=== PATIENT | female | born 1975 | race Caucasian/White ===

== ENCOUNTER 2016-05-16 13:38 | Outpatient (CLI) | payer MEDICAID ==
[~2016-05-16] VITALS: Ht 152.4 cm; Wt 75.0 kg
[2016-05-16 14:07] VITALS: Ht 152.4 cm; Wt 75.0 kg
[2016-05-16] MEDS ORDERED: BEN25 PO (14:09)
[2016-05-16] MEDS ORDERED: PRENAT PO (14:09)
--- NOTE | 2016-05-16 15:44 | RADRPT ---
PROCEDURE: US biophysical profile. CLINICAL INDICATION: DFM. well-being. TECHNIQUE: Multiple sonographic images of the uterus were obtained. The images were revi ewed on a PACS workstation. COMPARISON: 04/29/2016. FINDINGS: There is a single live intrauterine gestation. heart rate is 137 beats per minute. The position is cephalic. The placenta is posterior, grade 2. The CHRISTEN is 12 cm. Breathing Movement: 2 Gross Body Movement: 2 Tone: 2 Qualitative Amniotic Fluid Volume: 2 TOTAL: 8 IMPRESSION: 1. Single viable intrauterine gestation. 2. Biophysical profile = 12/17. 3. CHRISTEN = 12 cm. RPTAT: HH .Gabriela Cai MD, MD Date Time Electronically viewed and signed by .Gabriela Cai MD, MD on 05/16/2016 15:43 .N/
== END 2016-05-16 16:15 | disposition home or self-care (01) ==
LOC: OBT 13:38 → L-D 13:41 → OBT 16:15
PROVIDERS: ATTEND Obstetrics & Gynecology
DX: O36.8130 Decreased fetal movements, third trimester, not applicable or unspecified (principal); O62.9 Abnormality of forces of labor, unspecified; O09.523 Supervision of elderly multigravida, third trimester; Z3A.38 38 weeks gestation of pregnancy
CPT/HCPCS: 76818; Z7500; G0463

== ENCOUNTER 2016-05-26 00:39 | Inpatient (IN) | payer MEDICAID ==
[~2016-05-26] VITALS: Ht 153.7 cm; Wt 76.5 kg
[~2016-05-26 00:39] MED LIST: BEN25 PO; PRENAT PO
[2016-05-26 01:10] VITALS: BP 178/85; PULSE 72; RESP 18; Ht 153.7 cm; Wt 76.5 kg
[2016-05-26] MEDS ORDERED: METHYLERGONOVINE 0.2 MG INJ IM PRN (01:30)
[2016-05-26] MEDS ORDERED: OXYTOCIN 30 UNITS/LR 500 ML IV PRN (01:30)
[2016-05-26] MEDS ORDERED: MISOPROSTOL 200 MCG TAB PR PRN (01:30)
[2016-05-26] MEDS ORDERED: ACETAMINOPHEN/CODEINE #3 TAB PO PRN (01:30)
[2016-05-26] MEDS ORDERED: BUTORPHANOL 2 MG INJ IV PRN (01:30)
[2016-05-26] MEDS ORDERED: CARBOPROST 250 MCG INJ IM PRN (01:30)
[2016-05-26] MEDS ORDERED: OXYTOCIN 30 UNITS/LR 500 ML IV SCH ×2 (01:30)
[2016-05-26] MEDS ORDERED: IBUPROFEN 600 MG TAB PO PRN (01:30)
[2016-05-26] MEDS ORDERED: LIDOCAINE 1% (MPF) 30 ML INJ INJ PRN (01:30)
--- NOTE | 2016-05-26 01:51 | HP ---
Date/Time of Note Date/Time of Note DATE: 05/26/16 TIME: 01:42 OB - History Hx of Present Free Text/Dictation 40yo at 38+4 presenting for LOF. Pt states she has been leaking fluid and having irregular UCs, approximately 20 min apart, since 0900. Pt reports normal FM, denies VB, headache, RUQ pain or visual changes. Care: Good Care Obstetrical Complications: None Medical Complications: None Past Family/Social History * Past Medical, Surgical, Family and Obstetric Histories reviewed from chart. Blood Type: O+ Rubella: immune RPR/VDRL: Negative GBS Status: Negative HBsAG: Negative OB Admission Exam Vital Signs Vital Signs Vital Signs Date Time Temp Pulse Resp B/P Pulse Ox O2 Delivery O2 Flow Rate FiO2 05/26/16 01:10 97.6 72 18 178/85 Room Air BPs 170-185/82-98 Physical Exam HEENT: WNL Heart: Rhythm Normal Lungs: Clear Abdomen: WNL Extremities: Normal Reflexes: Normal Cervical Dilatation: None Effacement: 0% Station: Ballotable Membranes: Ruptured Amniotic Fluid: Clear Heart Rate: 120's Accelerations: Accelerations Present Decelerations: No Decelerations Varibility: Moderate Contractions on Admission: >10 Minutes Apart Intensity: Mild OB Assessment/Plan Other Assessment: 1) Term PROM 2) Severe Range BPs Plan: Induction Induction Method: per Pitocin Protocol Other plan: 1) Term PROM: Admit for IOL in the setting of PROM without labor. Will start Pitocin and titrate per protocol for contractions. Continuous toco. 2) Elevated BPs: Pt without known hx of elevated BPs although DBP at last appointment was 92. Pt is asymptomatic from PreE standpoint. PreE labs ordered along with straight cath urine specimen to assess for proteinuria. BPP/CHRISTEN pending. Stat Labetolol 20mg IV x1 now, will reassess BPs in 10 min. Plan to start Mag Sulfate after BPs are controlled initially with IV antihypertensives. 3) ID: Afebrile. s/p ROM x16H. ROM Plus positive. GBS neg. Antibiotics not indicated. 4) FWB: Category 1 FHT. CEFM 5) Pain: Pt comfortable now. Will reassess pt desires for pain control as labor progresses. Plan as outlined above discussed with pt. Questions answered to patient's satisfaction. YVON GLASER MD May 26, 2016 01:50
[2016-05-26] MEDS: LACTATED RINGER'S 1,000 ML IV SCH ×3 (01:53→20:49)
[2016-05-26] MEDS ORDERED: LABETALOL HCL 20MG INJ IV ONE (02:00)
[2016-05-26 02:29] LABS: BASOPHILS % 0.7 % (0.0-2.0); EOSINOPHILS # 0.1 10^3/ul (0.0-0.5); EOSINOPHILS % 1.2 % (0.0-7.0); HEMATOCRIT 34.2 % (37.0-47.0); HEMOGLOBIN 11.3 g/dl (12.0-16.0); LYMPHOCYTES # 1.7 10^3/ul (0.8-2.9); MEAN CORPUSCULAR HEMOGLOBIN 24.3 pg (29.0-33.0); MEAN CORPUSCULAR VOLUME 73.7 fl (82.0-101.0); MEAN PLATELET VOLUME 9.7 fl (7.4-10.4); MONOCYTE # 0.5 10^3/ul (0.3-0.9); MONOCYTES % 6.3 % (0.0-11.0); NEUTROPHILS % 68.8 % (39.0-77.0); PLATELET COUNT 248 10^3/UL (140-440); RED BLOOD COUNT 4.63 10^6/ul (4.20-5.40); UNCORRECTED WBC 7.3 10^3/ul (4.8-10.8); WHITE BLOOD COUNT 7.3 10^3/ul (4.8-10.8)
[2016-05-26 02:32] LABS: CONDITION 1; LH ANALYZER COMMENTS 1
[2016-05-26 02:33] LABS: INR 0.86; PARTIAL THROMBOPLASTIN TIME 26.9 Sec (25.0-35.0); PROTIME 11.7 Sec (12.2-14.2); PT RATIO 0.9
[2016-05-26 02:52] LABS: ALBUMIN 3.3 g/dl (3.3-4.9); POTASSIUM 3.7 mmol/L (3.5-5.1)
[2016-05-26 02:54] LABS: BILIRUBIN,INDIRECT 0.1 mg/dl (0-1.1); BILIRUBIN,TOTAL 0.1 mg/dl (0.2-1.3); CREATININE 0.53 mg/dl (0.44-1.00)
[2016-05-26 02:55] LABS: ALBUMIN/GLOBULIN RATIO 0.94; TOTAL PROTEIN 6.8 g/dl (6.1-8.1); URIC ACID 5.7 mg/dl (3.1-7.9)
[2016-05-26 02:56] LABS: CALCIUM 8.8 mg/dl (8.4-10.2)
[2016-05-26] MEDS ORDERED: CA GLUCONATE (GM) 10% 10ML INJ IV PRN (03:30)
--- NOTE | 2016-05-26 03:52 | RADRPT ---
PROCEDURE: US OB biophysical profile. CLINICAL INDICATION: Contractions TECHNIQUE: Multiple sonographic images of the pelvis were obtained. The images were reviewed on a PACS workstation. COMPARISON: No pertinent prior examinations were submitted for comparison. FINDINGS: There is a single viable intrauterine gestation. Cardiac activity is present with 129 beats per min micaela. There is a vertex presentation. The placenta is posterior and grade 2 in appearance. There is a normal amount of amniotic fluid with an CHRISTEN = 5.5 cm. Biophysical profile: movement 2/2 tone 2/2. breathing 2/2 CHRISTEN 2/2 Total 12/17 IMPRESSION: Normal biophysical profile. Oligohydramnios. RPTAT: HIKT . .Lisandro Flower MD, MD Date Time Electronically viewed and signed by .Lisandro Flower MD, on 05/26/2016 03:51 .T/
[2016-05-26] MEDS ORDERED: MAGNESIUM SULFATE 4 GM/100 ML 100 ML IV SCH (04:00)
[2016-05-26] MEDS: MAGNESIUM SULFATE 20 GM/500 ML 500 ML IV SCH ×2 (05:13→15:24)
[2016-05-26 06:40] LABS: ADD UMIC NO; URINE BILIRUBIN (Dip) NEGATIVE (NEGATIVE); URINE BLOOD (Dip) NEGATIVE (NEGATIVE); URINE COLOR LT. YELLOW (YELLOW); URINE GLUCOSE (Dip) NEGATIVE (NEGATIVE); URINE KETONES (Dip) NEGATIVE (NEGATIVE); URINE LEUKOCYTE ESTERASE (Dip) NEGATIVE (NEGATIVE); URINE NITRITE (Dip) NEGATIVE (NEGATIVE); URINE TOTAL PROTEIN (Dip) NEGATIVE (NEGATIVE); URINE UROBILINOGEN (Dip) 0.2 E.U./dL (0.1-1.0)
[2016-05-26] MEDS: OXYTOCIN 30 UNITS/LR 500 ML IV SCH ×2 (07:45→16:00)
[2016-05-26] MEDS ORDERED: LACTATED RINGER'S 1,000 ML IV PRN (09:30)
[2016-05-26] MEDS ORDERED: ACETAMINOPHEN 325 MG TAB PO ONE (11:30)
[2016-05-26] MEDS ORDERED: METOCLOPRAMIDE 10 MG INJ IV ONE (19:47)
--- NOTE | 2016-05-26 19:57 | QN ---
Documentation Comment Laborist Pt seen and examined, FHT reviewed. Pt c/o BARNARD and facial flushing since starting magnesium sulfate. Took 650mg of Tylenol recently without improvement in BARNARD. Denies visual changes or RUQ pain. VS BPs 164/88 (150s-160s/80s-90s) FHT: Baseline 120s, mod dianna, +accels, early decel [place]: q2-6 min on Pitocin at 16mu/min SVE: 3/90/-2, forebag palpated Assessment 1)IOL 2/2 term PROM 2)Elevated BPs w/o evidence of PreE Plan 1)Continue IOL w/Pitocin, titrating for contractions per protocol. Cont toco 2)FWB reassuring, CEFM 3)Pt with mostly mild range BPs and unsustained severe range BPs, not requiring additional IV antihypertensives since early this AM in triage. Will repeat PreE labs now and send reyes cath urine specimen for U/A 4)Reglan 10mg IV x1 for BARNARD 5)Epidural per pt request for pain Anticipate VYON GLASER MD May 26, 2016 19:57
[2016-05-26] MEDS ORDERED: EPHEDrine SULFATE 50 MG/5 ML SYG IV PRN (20:30)
[2016-05-26] MEDS ORDERED: ONDANSETRON 4 MG INJ IV PRN (20:30)
[2016-05-26] MEDS ORDERED: NALOXONE (0.4 MG/ML) INJ IV PRN (20:30)
[2016-05-26] MEDS: FENTAnyl 2MCG/ML-ROPIV 0.2% 100 ML BAG EPI SCH (21:19)
[2016-05-26 21:26] LABS: ADD UMIC YES; URINE BILIRUBIN (Dip) NEGATIVE (NEGATIVE); URINE BLOOD (Dip) 1+ (NEGATIVE); URINE COLOR LT. YELLOW (YELLOW); URINE GLUCOSE (Dip) NEGATIVE (NEGATIVE); URINE KETONES (Dip) 40 (NEGATIVE); URINE LEUKOCYTE ESTERASE (Dip) NEGATIVE (NEGATIVE); URINE NITRITE (Dip) NEGATIVE (NEGATIVE); URINE TOTAL PROTEIN (Dip) NEGATIVE (NEGATIVE); URINE UROBILINOGEN (Dip) 0.2 E.U./dL (0.1-1.0)
[2016-05-26 21:29] LABS: BASOPHILS % 0.1 % (0.0-2.0); CONDITION 1; EOSINOPHILS % 0.5 % (0.0-7.0); HEMATOCRIT 36.1 % (37.0-47.0); HEMOGLOBIN 11.7 g/dl (12.0-16.0); LH ANALYZER COMMENTS 1; LYMPHOCYTES % 11.1 % (15.0-51.0); MEAN CORPUSCULAR HEMOGLOBIN 24.2 pg (29.0-33.0); MEAN CORPUSCULAR HGB CONC 32.5 g/dl (32.0-37.0); MEAN CORPUSCULAR VOLUME 74.5 fl (82.0-101.0); MEAN PLATELET VOLUME 9.6 fl (7.4-10.4); MONOCYTE # 0.4 10^3/ul (0.3-0.9); MONOCYTES % 4.1 % (0.0-11.0); NEUTROPHIL # 7.6 10^3/ul (1.6-7.5); NEUTROPHILS % 84.2 % (39.0-77.0); PLATELET COUNT 258 10^3/UL (140-440); RED BLOOD COUNT 4.84 10^6/ul (4.20-5.40); RED CELL DISTRIBUTION WIDTH 15.9 % (11.5-14.5)
[2016-05-26 21:31] LABS: INR 0.9; PARTIAL THROMBOPLASTIN TIME 26.8 Sec (25.0-35.0); PROTIME 12.1 Sec (12.2-14.2); PT RATIO 0.9
[2016-05-26 21:32] LABS: ALBUMIN 3.4 g/dl (3.3-4.9)
[2016-05-26 21:33] LABS: POTASSIUM 3.9 mmol/L (3.5-5.1)
[2016-05-26 21:35] LABS: ALBUMIN/GLOBULIN RATIO 0.94; BILIRUBIN,INDIRECT 0.2 mg/dl (0-1.1); BILIRUBIN,TOTAL 0.2 mg/dl (0.2-1.3); CREATININE 0.51 mg/dl (0.44-1.00)
[2016-05-26 21:36] LABS: CALCIUM 6.8 mg/dl (8.4-10.2); URIC ACID 6.1 mg/dl (3.1-7.9)
[2016-05-26 21:43] LABS: BACTERIA,URINE RARE; SQUAMOUS EPITHELIAL CELL,UR RARE
--- NOTE | 2016-05-26 23:32 | QN ---
Documentation Comment Pt sleeping. BARNARD resolved. Comfortable with epidural. BPs 110s-130s/70s FHT Category 1 now. Pt had a few late decels earlier which resolved with position changes SVE (@2100 immediately after epidural) unchanged PreE labs repeated. Urine neg for proteinuria, labs wnl. Continue Pitocin per protocol, now at 19mu/min. Will repeat SVE at 0100 Continue Mag Sulfate given pt had new onset severe range BPs D5LR for trace ketones and sp grav >1.030 YVON GLASER MD May 26, 2016 23:32
[2016-05-26] MEDS ORDERED: DEXTROSE 5%-LR 1,000 ML IV ONE (23:38)
[2016-05-27] MEDS: MAGNESIUM SULFATE 20 GM/500 ML 500 ML IV SCH (00:52)
[2016-05-27] MEDS: LACTATED RINGER'S 1,000 ML IV SCH (01:17)
[2016-05-27] MEDS: FENTAnyl 2MCG/ML-ROPIV 0.2% 100 ML BAG EPI SCH (02:21)
[2016-05-27] MEDS ORDERED: LABETALOL HCL 20MG INJ IV ONE (03:56)
[2016-05-27] MEDS ORDERED: LABETALOL HCL 20MG INJ ONE (03:59)
[2016-05-27] MEDS ORDERED: BUPIVACAINE 0.25% (MPF) 30 ML INJ INJ ONE (04:00)
[2016-05-27 04:21] LABS: ALBUMIN 3.5 g/dl (3.3-4.9); POTASSIUM 4.2 mmol/L (3.5-5.1)
[2016-05-27 04:23] LABS: ALBUMIN/GLOBULIN RATIO 0.92; BILIRUBIN,INDIRECT 0.2 mg/dl (0-1.1); BILIRUBIN,TOTAL 0.2 mg/dl (0.2-1.3); CREATININE 1.04 mg/dl (0.44-1.00); TOTAL PROTEIN 7.3 g/dl (6.1-8.1)
[2016-05-27 04:24] LABS: CALCIUM 6.9 mg/dl (8.4-10.2)
[2016-05-27] MEDS ORDERED: PROPOFOL 20 ML ONE ×2 (04:44→04:48)
[2016-05-27 05:16] LABS: MAGNESIUM 7.8 mg/dl (1.7-2.5)
--- NOTE | 2016-05-27 05:57 | LDN ---
Date/Time of Note Date/Time of Note DATE: 05/27/16 TIME: 05:52 Delivery Summary Pt pushed under epidural anesthesia to an of a liveborn female infant weighing 3385g with Apgars of 8 and 9 at 1 and 5 min respectively. Easy delivery of the head, followed by anterior, posterior shoulders and the remainder of the body. The infant was vigorous at and placed on mother's abdomen and cord clamping was delayed. The pt received standard IV Pitocin. The cord was doubly clamped and cut and the infant was taken to the warmer for evaluation in the setting of maternal hypermagnesemia and decreased variability on FHT. Cord blood was collected. An intact 3VC placenta spontaneously delivered shortly thereafter. The fundus was noted to be firm. Inspection of the vagina and perineum revealed no lacerations however brisk vaginal bleeding was noted from the uterus. ESVIN atony was noted on BME and the patient received Methergine 200mcg IM x1 and Misoprostol 1000mcg ID with temporary improvement in bleeding. The cervix was then examined and cervical laceration was suspected however pt discomfort prevented full assessment. The pt then received a epidural bolus with some improvement in comfort, however still not sufficient for full evaluation. The decision was made to move to the OR for a more optimal examination and for patient comfort. A lap sponge was placed in the vagina during transport. EBL in LDR approx 300ml Placenta Delivered: Spontaneously Meconium: none Perineum intact?: Yes Anesthesia type: Epidural Estimated blood loss: 400 Sponge & Needle done & correct: Yes All needle counts correct: Yes Any foreign bodies felt in the: No Problems: Delivery Information Sex Infant Sex: female Apgars 1 Minute: 8 5 Minute: 9 Suctioning Nose & mouth suctioned at ivette: No Delee suction performed: No Umbilical Cord Umbilical cord with: 3 Vessels Cord presentations: no nuchal cord Cord Blood was obtained: Yes Mother & Baby Disposition Disposition Mom & Baby to Maternity; Good: Yes Baby to NICU: No YVON GLASER MD May 27, 2016 05:57
--- NOTE | 2016-05-27 06:09 | OPR ---
Operative Report Planned Procedure Free Text/Dictation The patient was counseled regarding the need for a more thorough examination under anesthesia. After the patient's questions had been answered to her satisfaction, she was transferred from LDR to OR for examination under anesthesia and repair of suspected cervical laceration. In the OR, under MAC anesthesia which was satisfactory, the pt was placed in dorsal lithotomy position in stirrups and a right angle retractor was placed in the anterior vaginal fornix. The cervix was well visualized and ring forceps were used to evaluate the cervix completely. A laceration at the 6 o'clock position of the cervix was noted. This was repaired in a running locking fashion using Vicryl suture. Hemostasis was assured. The fundus was noted to be firm following the repair. All instruments were removed from the vagina. The pt was returned to dorsal lithotomy position and transferred back to the LDR for recovery. EBL in OR 200ml. Procedure date May 27, 2016 Procedure(s) 1) Examination under anesthesia; 2) Repair of cervical laceration Performed by: YVON GLASER MD Anesthesiologist: LATOYA LOPEZ MD Pre-procedure diagnosis 1) Hemorrhage; 2)Cervical Laceration Anesthesia Type: MAC Post-Procedure Findings: Cervical laceration, approximately 2cm at the 6 o'clock position on the posterior aspect of the cervix. Cervical canal examined to ensure patency following repair. Specimen removed: No Complications: None Pt Condition post procedure: stable Disposition: other (LDR) Physician Certification I, the undersigned physician, hereby certify that I have discussed the procedure described in this consent form with this patient (or the patient's legal employee relations representative), including: * The risk and benefits of the procedure; * Any adverse reactions that may reasonably be expected to occur; * Any alternative efficacious methods of treatment which may be medically viable ; * The potential problems that may occur during recuperation; * Potential for blood transfusion and associated risks/benefits; and I further certify that the patient/legally responsible person was encouraged to ask question and that all questions were answered. YVON GLASER MD May 27, 2016 06:07
--- NOTE | 2016-05-27 06:15 | QN ---
Documentation Comment Laborist Magnesium Sulfate level at midnight was 9.2. The Magnesium infusion was discontinued. Follow-up level at 0345 was 7.8. Will keep the Magnesium off for now in the setting of normal BPs (Pt did receive a single dose of Labetolol 20mg IV x1 following delivery for persistent SBPs 160s in the setting of discomfort during a difficult vaginal exam for identification of source of PPH) . Next Mg level scheduled for 1000. Calcium also will be redrawn. Hypocalcemia likely 2/2 hypermagnesemia. Will follow closely. YVON GLASER MD May 27, 2016 06:15
[2016-05-27] MEDS ORDERED: MISOPROSTOL 200 MCG TAB PR PRN (06:30)
[2016-05-27] MEDS ORDERED: METHYLERGONOVINE 0.2 MG INJ IM PRN (06:30)
[2016-05-27] MEDS ORDERED: OXYTOCIN 30 UNITS/LR 500 ML IV PRN (06:30)
[2016-05-27] MEDS ORDERED: ACETAMINOPHEN/CODEINE #3 TAB PO PRN (06:30)
[2016-05-27] MEDS ORDERED: DIBUCAINE 1% 30 GM OINT PR PRN (06:30)
[2016-05-27] MEDS ORDERED: CARBOPROST 250 MCG INJ IM PRN (06:30)
[2016-05-27] MEDS ORDERED: LANOLIN 7 GM TUBE TOP PRN (06:30)
[2016-05-27] MEDS ORDERED: DIPHENHYDRAMINE 50 MG INJ IV PRN (06:30)
[2016-05-27] MEDS ORDERED: ONDANSETRON 4 MG INJ IV PRN (06:30)
[2016-05-27] MEDS ORDERED: ACETAMINOPHEN 325 MG TAB PO PRN (06:30)
[2016-05-27] MEDS ORDERED: SENNA/DOCUSATE NA (8.6MG/50MG) TAB PO PRN (06:30)
[2016-05-27] MEDS ORDERED: BENZOCAINE 20% 56 ML SPRAY TOP PRN (06:30)
[2016-05-27] MEDS: ACETAMINOPHEN/CODEINE #3 TAB PO PRN ×2 (07:07→17:02)
[2016-05-27] MEDS: LACTATED RINGER'S 1,000 ML IV* SCH ×2 (08:32→14:09)
[2016-05-27 09:30] VITALS: BP 131/69; PULSE 80; RESP 18
[2016-05-27 10:30] VITALS: BP 137/67; PULSE 74; RESP 18
[2016-05-27 12:07] VITALS: BP 139/76; PULSE 72; RESP 20
[2016-05-27 12:09] LABS: BASOPHILS % 0.1 % (0.0-2.0); HEMATOCRIT 25.9 % (37.0-47.0); HEMOGLOBIN 8.6 g/dl (12.0-16.0); LYMPHOCYTES # 1.2 10^3/ul (0.8-2.9); LYMPHOCYTES % 7.4 % (15.0-51.0); MEAN CORPUSCULAR HEMOGLOBIN 24.5 pg (29.0-33.0); MEAN CORPUSCULAR VOLUME 74.2 fl (82.0-101.0); MEAN PLATELET VOLUME 9.7 fl (7.4-10.4); MONOCYTE # 0.6 10^3/ul (0.3-0.9); MONOCYTES % 3.6 % (0.0-11.0); NEUTROPHIL # 14.9 10^3/ul (1.6-7.5); NEUTROPHILS % 88.9 % (39.0-77.0); PLATELET COUNT 217 10^3/UL (140-440); RED BLOOD COUNT 3.49 10^6/ul (4.20-5.40); RED CELL DISTRIBUTION WIDTH 16.2 % (11.5-14.5); UNCORRECTED WBC 16.8 10^3/ul (4.8-10.8); WHITE BLOOD COUNT 16.8 10^3/ul (4.8-10.8)
[2016-05-27 12:10] LABS: CONDITION 1; LH ANALYZER COMMENTS 1
[2016-05-27 15:50] VITALS: BP 112/66; PULSE 73; RESP 19
[2016-05-27 19:30] VITALS: BP 128/62; PULSE 77; RESP 20
[2016-05-28 04:06] VITALS: BP 133/64; PULSE 76; RESP 20
[2016-05-28 04:44] LABS: BARBITURATES Negative (NEGATIVE); BENZODIAZEPINES Negative (NEGATIVE)
[2016-05-28 04:52] LABS: CANNABINOIDS Negative (NEGATIVE); COCAINE Negative (NEGATIVE); OPIATES Positive (NEGATIVE)
[2016-05-28 07:40] VITALS: BP 119/58; PULSE 79; RESP 19
[2016-05-28 08:15] LABS: BASOPHILS % 0.2 % (0.0-2.0); EOSINOPHILS # 0.1 10^3/ul (0.0-0.5); EOSINOPHILS % 0.8 % (0.0-7.0); HEMATOCRIT 23.7 % (37.0-47.0); HEMOGLOBIN 7.8 g/dl (12.0-16.0); LYMPHOCYTES # 1.7 10^3/ul (0.8-2.9); LYMPHOCYTES % 15.1 % (15.0-51.0); MEAN CORPUSCULAR HEMOGLOBIN 24.5 pg (29.0-33.0); MEAN CORPUSCULAR HGB CONC 32.7 g/dl (32.0-37.0); MEAN CORPUSCULAR VOLUME 74.9 fl (82.0-101.0); MEAN PLATELET VOLUME 8.6 fl (7.4-10.4); MONOCYTE # 0.4 10^3/ul (0.3-0.9); MONOCYTES % 3.7 % (0.0-11.0); NEUTROPHIL # 9.1 10^3/ul (1.6-7.5); NEUTROPHILS % 80.2 % (39.0-77.0); PLATELET COUNT 220 10^3/UL (140-440); RED BLOOD COUNT 3.17 10^6/ul (4.20-5.40); RED CELL DISTRIBUTION WIDTH 16.1 % (11.5-14.5); UNCORRECTED WBC 11.4 10^3/ul (4.8-10.8); WHITE BLOOD COUNT 11.4 10^3/ul (4.8-10.8)
[2016-05-28 08:21] LABS: CONDITION 1; LH ANALYZER COMMENTS 1
[2016-05-28 16:10] VITALS: BP 120/69; PULSE 91; RESP 19
[2016-05-28 19:30] VITALS: BP 126/74; PULSE 87; RESP 20
[2016-05-29 04:15] VITALS: BP 133/62; PULSE 74; RESP 20
[2016-05-29 08:00] VITALS: BP 130/68; RESP 18
[2016-05-29] MEDS ORDERED: DIPHTH/TET/ACEL PERTUSS (ADULT) 0.5 ML VIAL IM* ONE (09:00)
[2016-05-29] MEDS: ACETAMINOPHEN/CODEINE #3 TAB PO PRN (09:07)
--- NOTE | 2016-05-29 12:11 | PN ---
Date/Time of Note Date/Time of Note DATE: 05/29/16 TIME: 12:03 OB Subjective Subjective Subjective Patient reports decreased vaginal bleeding, Denies any headache, but reports on and off blurred vision. Patient reports seeing some black spots that goes away after she wears her glasses. Denies having such issues in the past. She denies any headache or epigastric pain or right upper quadrant pain. Patient has some trouble with breast-feeding. Reports had not have adequate milk supply . desires to breast-feed. Denies any chest pain or shortness of breath while ambulating. She urinated. OB Objective Objective Objective Physical examination: GA: A& O, NAD Lungs: Clear to auscultation bilaterally. CV: RRR Abdomen: Soft nontender, no rebound tenderness, fundus is firm nontender. Breasts: Not engorged. No fissure. Extremities: No calf tenderness no clicks no edema. Hematology - 72 Hrs Test 05/26/16 21:10 05/27/16 11:15 05/28/16 07:38 Basophils # 0.010^3/ul (0.0-0.1) 0.010^3/ul (0.0-0.1) 0.010^3/ul (0.0-0.1) Basophils % 0.1% (0.0-2.0) 0.1% (0.0-2.0) 0.2% (0.0-2.0) Blood Morphology Comment Eosinophils # 0.010^3/ul (0.0-0.5) 0.010^3/ul (0.0-0.5) 0.110^3/ul (0.0-0.5) Eosinophils % 0.5% (0.0-7.0) 0.0% (0.0-7.0) 0.8% (0.0-7.0) Hematocrit 36.1% (37.0-47.0) L 25.9% (37.0-47.0) #L 23.7% (37.0-47.0) L Hemoglobin 11.7g/dl (12.0-16.0) L 8.6g/dl (12.0-16.0) #L 7.8g/dl (12.0-16.0) L Lymphocytes # 1.010^3/ul (0.8-2.9) 1.210^3/ul (0.8-2.9) 1.710^3/ul (0.8-2.9) Lymphocytes % 11.1% (15.0-51.0) L 7.4% (15.0-51.0) L 15.1% (15.0-51.0) Mean Corpuscular Hemoglobin 24.2pg (29.0-33.0) L 24.5pg (29.0-33.0) L 24.5pg (29.0-33.0) L Mean Corpuscular Hemoglobin Concent 32.5g/dl (32.0-37.0) 33.0g/dl (32.0-37.0) 32.7g/dl (32.0-37.0) Mean Corpuscular Volume 74.5fl (82.0-101.0) L 74.2fl (82.0-101.0) L 74.9fl (82.0-101.0) L Mean Platelet Volume 9.6fl (7.4-10.4) 9.7fl (7.4-10.4) 8.6fl (7.4-10.4) Monocytes # 0.410^3/ul (0.3-0.9) 0.610^3/ul (0.3-0.9) 0.410^3/ul (0.3-0.9) Monocytes % 4.1% (0.0-11.0) 3.6% (0.0-11.0) 3.7% (0.0-11.0) Neutrophils # 7.610^3/ul (1.6-7.5) H 14.910^3/ul (1.6-7.5) H 9.110^3/ul (1.6-7.5) H Neutrophils % 84.2% (39.0-77.0) H 88.9% (39.0-77.0) H 80.2% (39.0-77.0) H Nucleated Red Blood Cells # 0.010^3/ul (0.0-0.0) 0.010^3/ul (0.0-0.0) 0.010^3/ul (0.0-0.0) Nucleated Red Blood Cells % 0.0/100WBC (0.0-0.0) 0.0/100WBC (0.0-0.0) 0.0/100WBC (0.0-0.0) Platelet Count 15119^3/UL (140-440) 47286^3/UL (140-440) 95538^3/UL (140-440) Red Blood Count 4.8410^6/ul (4.20-5.40) 3.4910^6/ul (4.20-5.40) #L 3.1710^6/ul (4.20-5.40) L Red Cell Distribution Width 15.9% (11.5-14.5) H 16.2% (11.5-14.5) H 16.1% (11.5-14.5) H White Blood Count 9.010^3/ul (4.8-10.8) # 16.810^3/ul (4.8-10.8) #H 11.410^3/ul (4.8-10.8) #H Chemistry Test 05/26/16 12:20 05/26/16 18:24 05/26/16 21:10 05/27/16 00:20 Magnesium Level 5.7mg/dl (1.7-2.5) *H 6.2mg/dl (1.7-2.5) *H 9.2mg/dl (1.7-2.5) #*H Alanine Aminotransferase (ALT/SGPT) 31IU/L (13-69) Albumin 3.4g/dl (3.3-4.9) Albumin/Globulin Ratio 0.94 Alkaline Phosphatase 325IU/L (42-121) H Anion Gap 17 (8-16) H Aspartate Amino Transf (AST/SGOT) 32IU/L (15-46) Blood Urea Nitrogen 4mg/dl (7-20) L Calcium Level 6.8mg/dl (8.4-10.2) L Carbon Dioxide Level 20mmol/L (21-31) L Chloride Level 102mmol/L (97-110) Creatinine 0.51mg/dl (0.44-1.00) Direct Bilirubin 0.00mg/dl (0.00-0.20) Globulin 3.60g/dl (1.3-3.2) H Glucose Level 96mg/dl (70-220) Indirect Bilirubin 0.2mg/dl (0-1.1) Potassium Level 3.9mmol/L (3.5-5.1) Sodium Level 135mmol/L (135-144) Total Bilirubin 0.2mg/dl (0.2-1.3) Total Protein 7.0g/dl (6.1-8.1) Uric Acid 6.1mg/dl (3.1-7.9) Test 05/27/16 03:50 05/27/16 11:15 Alanine Aminotransferase (ALT/SGPT) 27IU/L (13-69) Albumin 3.5g/dl (3.3-4.9) Albumin/Globulin Ratio 0.92 Alkaline Phosphatase 314IU/L (42-121) H Anion Gap 19 (8-16) H 10 (8-16) # Aspartate Amino Transf (AST/SGOT) 38IU/L (15-46) Blood Urea Nitrogen 7mg/dl (7-20) Calcium Level 6.9mg/dl (8.4-10.2) L Carbon Dioxide Level 20mmol/L (21-31) L 23mmol/L (21-31) Chloride Level 101mmol/L (97-110) 101mmol/L (97-110) Creatinine 1.04mg/dl (0.44-1.00) H Direct Bilirubin 0.00mg/dl (0.00-0.20) Globulin 3.80g/dl (1.3-3.2) H Glucose Level 137mg/dl (70-220) # Indirect Bilirubin 0.2mg/dl (0-1.1) Magnesium Level 7.8mg/dl (1.7-2.5) *H Potassium Level 4.2mmol/L (3.5-5.1) 4.0mmol/L (3.5-5.1) Sodium Level 136mmol/L (135-144) 130mmol/L (135-144) L Total Bilirubin 0.2mg/dl (0.2-1.3) Total Protein 7.3g/dl (6.1-8.1) OB Assessment/Plan Other Assessment: 40-year-old status post day #2. PIH, was on magnesium for 24 hours. Currently off of magnesium. Blood pressures in the range of 120-130/60-70. Denies any headache. Reports some black spots that resolved with uses glasses. Denies any headache, right upper quadrant epigastric pain. Blood pressures are all within normal range. Likely not PIH symptoms Repeat labs requested Needs opto consultation after DC home if labs normal. Anemia, post . Asymptomatic. Will follow up with a repeat CBC. If labs are stable and normal consider discharging home today with follow-up within a week with her OB clinic for follow-up of a blood pressure. AISHWARYA KELLY MD May 29, 2016 12:11 AISHWARYA KELLY MD May 29, 2016 12:11
--- NOTE | 2016-05-29 12:20 | PD.PPDC ---
[employer] OPERATOR Discharge Instruction Condition Patient Condition: Good Diet Special Diet: Iron rich diet Activity/Restrictions Activity: Normal Activity Restrictions: No Lifting No Sexual Activity Nothing in the Vagina No [place] No Tampons, douche Follow-up Follow-up with Physician: 1, 6, Week/Weeks Provider Information: Follow-up in 1 week and [address] Tadeo her primary OB for follow-up of the blood pressure Return to clinic for [employer]ER Instructions: Fever greater than 101 Chills Worsening abdominal pain Excessive Vaginal Bleeding More than 2 pads per hour Unable to tolerate diet OB Instructions: Breast Tenderness Depression Blurried Vision Headache AISHWARYA KELLY MD May 29, 2016 12:20
[2016-05-29 13:34] LABS: POTASSIUM 3.8 mmol/L (3.5-5.1)
[2016-05-29 13:36] LABS: CREATININE 0.55 mg/dl (0.44-1.00)
[2016-05-29 13:37] LABS: CALCIUM 8.5 mg/dl (8.4-10.2)
[2016-05-29 13:45] LABS: EOSINOPHILS # 0.1 10^3/ul (0.0-0.5); EOSINOPHILS % 0.9 % (0.0-7.0); HEMOGLOBIN 7.5 g/dl (12.0-16.0); LYMPHOCYTES # 1.4 10^3/ul (0.8-2.9); LYMPHOCYTES % 16.5 % (15.0-51.0); MEAN CORPUSCULAR HEMOGLOBIN 24.8 pg (29.0-33.0); MEAN CORPUSCULAR HGB CONC 32.6 g/dl (32.0-37.0); MEAN PLATELET VOLUME 8.8 fl (7.4-10.4); MONOCYTE # 0.4 10^3/ul (0.3-0.9); MONOCYTES % 4.2 % (0.0-11.0); NEUTROPHIL # 6.8 10^3/ul (1.6-7.5); NEUTROPHILS % 78.4 % (39.0-77.0); PLATELET COUNT 235 10^3/UL (140-440); RED BLOOD COUNT 3.03 10^6/ul (4.20-5.40); RED CELL DISTRIBUTION WIDTH 16.5 % (11.5-14.5); UNCORRECTED WBC 8.7 10^3/ul (4.8-10.8); WHITE BLOOD COUNT 8.7 10^3/ul (4.8-10.8)
[2016-05-29 13:52] LABS: CONDITION 1; LH ANALYZER COMMENTS 1
[2016-05-29] MEDS ORDERED: FER325 PO ×2 (15:50→15:51)
--- NOTE | 2016-05-29 19:31 | DS ---
Date/Time of Note Date/Time of Note DATE: 05/29/16 TIME: 19:30 Discharge Summary Admission/Discharge Info Admit Date/Time May 26, 2016 at 01:28 Discharge Date/Time May 29, 2016 at 17:22 Final Diagnosis PIH Patient Condition: Good Consults None Procedures Labor induction due to PROM as well as severe preeclampsia hemorrhage, due to acne as well as cervical laceration, resolved with uterotonics and repair of the cervix Hx of Present Illness 40 years Hospital Course 40yo at 38+4 presenting for LOF. Pt states she has been leaking fluid and having irregular UCs, approximately 20 min apart, since 0900. Pt reports normal FM, denies VB, headache, RUQ pain or visual changes. She was noted to have elevated blood pressure in the severe range that required IV antihypertensive medication. Due to severe preeclampsia as well as PROM in the context of term decision was made to proceed with labor induction. She also received magnesium for seizure prophylaxis. She had course was complicated by hemorrhage due to uterine atony as well as cervical laceration. Resolved with uterotonics and cervical repair. she did well and the rest of her course. On day #2 she was noted to be stable enough to be discharged home. Her blood pressure was in the range of 120s-130s after delivery. She denied any headache or epigastric pain the right upper quadrant pain. She reported some black spots that resolved after she uses her glasses and occurs when she takes her glasses off. Her blood pressure during all this time of monitoring remained in normal range however patient was given strict preeclampsia precautions She was advised to have a follow-up with her blood pressure check in a couple of days with her OB clinic. Signs and symptoms of preeclampsia again reviewed with the patient and patient was advised to immediately come to emergency room she has any headache epigastric and right upper quadrant pain or if black spots does not resolve with using glasses or worsening of her symptoms or for any other concerns. Patient verbalized complete understanding. Home Meds Reported Medications Ferrous Sulfate* (Ferrous Sulfate*) 325 Mg Tabec, 325 MG PO BID, TAB 05/29/16 Discontinued Reported Medications Ferrous Sulfate* (Ferrous Sulfate*) 325 Mg Tabec, 325 MG PO BID, TAB 05/29/16 Diphenhydramine Hcl* (Benadryl*) 25 Mg Cap, 25 MG PO Q6H Y for ITCHING, CAP 1/5/17 Multivit/Min/Fol Ac/Iron/Pren* ( S*) 1 Tab Tab, 1 TAB PO DAILY, TAB 05/16/16 Follow-up Plan In the next couple of days with OB clinic as well as 1 week and 6 weeks Pending Labs Laboratory Tests Test 05/29/16 13:00 Anion Gap 12 (8-16) Basophils # 0.010^3/ul (0.0-0.1) Basophils % 0.0% (0.0-2.0) Blood Morphology Comment Blood Urea Nitrogen 8mg/dl (7-20) Calcium Level 8.5mg/dl (8.4-10.2) Carbon Dioxide Level 27mmol/L (21-31) Chloride Level 104mmol/L (97-110) Creatinine 0.55mg/dl (0.44-1.00) Eosinophils # 0.110^3/ul (0.0-0.5) Eosinophils % 0.9% (0.0-7.0) Glucose Level 94mg/dl (70-220) Hematocrit 23.0% (37.0-47.0) Hemoglobin 7.5g/dl (12.0-16.0) Lymphocytes # 1.410^3/ul (0.8-2.9) Lymphocytes % 16.5% (15.0-51.0) Mean Corpuscular Hemoglobin 24.8pg (29.0-33.0) Mean Corpuscular Hemoglobin Concent 32.6g/dl (32.0-37.0) Mean Corpuscular Volume 76.0fl (82.0-101.0) Mean Platelet Volume 8.8fl (7.4-10.4) Monocytes # 0.410^3/ul (0.3-0.9) Monocytes % 4.2% (0.0-11.0) Neutrophils # 6.810^3/ul (1.6-7.5) Neutrophils % 78.4% (39.0-77.0) Nucleated Red Blood Cells # 0.010^3/ul (0.0-0.0) Nucleated Red Blood Cells % 0.0/100WBC (0.0-0.0) Platelet Count 53248^3/UL (140-440) Potassium Level 3.8mmol/L (3.5-5.1) Red Blood Count 3.0310^6/ul (4.20-5.40) Red Cell Distribution Width 16.5% (11.5-14.5) Sodium Level 139mmol/L (135-144) White Blood Count 8.710^3/ul (4.8-10.8) AISHWARYA KELLY MD May 29, 2016 19:31
== END 2016-05-29 17:22 | disposition home or self-care (01) | DRG 775 ==
LOC: OBT 00:39 → L-D 00:40 → OBT 01:27 → L-D 01:28 → PP1 05-27 09:26
PROVIDERS: ADMIT Obstetrics & Gynecology; ATTEND Obstetrics & Gynecology
PROC: 10E0XZZ Delivery of Products of Conception, External Approach (ICD-10-PCS; principal; 2016-05-27)
PROC: 0UQC7ZZ Repair Cervix, Via Natural or Artificial Opening (ICD-10-PCS; 2016-05-27)
DX: O14.94 Unspecified pre-eclampsia, complicating childbirth (principal); O71.3 Obstetric laceration of cervix; O42.92 Full-term premature rupture of membranes, unspecified as to length of time between rupture and onset of labor; Z3A.38 38 weeks gestation of pregnancy; Z37.0 Single live birth
CPT/HCPCS: 36415; 62319; 76818; 80048; 80051; 80053; 80307; 81001; 81003; 83735; 84112; 84560; 85025; 85384; 85610; 85730; 86592; 86900; 86901; 87340; 88307; 90715; 96360; 96367; 96372; 99464; G0463; J2210; J2405; J2590; J2765; J3010; J3475; J7120; J7121

== ENCOUNTER 2017-05-05 12:26 | Emergency (ER) | payer MEDICAID ==
[~2017-05-05] VITALS: Ht 160 cm; Wt 62.7 kg
[~2017-05-05 12:26] MED LIST changes: -BEN25 PO; +FER325 PO; -PRENAT PO
[2017-05-05 12:36] VITALS: Ht 160 cm; Wt 62.7 kg
[2017-05-05] MEDS ORDERED: ACETAMINOPHEN 500 MG TAB PO STA (13:27)
[2017-05-05] MEDS ORDERED: IBUPROFEN 200 MG TAB PO ONE (13:30)
[2017-05-05] MEDS ORDERED: ACET325T33 PO (13:35)
[2017-05-05] MEDS ORDERED: LORA1TAB54 PO (13:35)
[2017-05-05 13:58] VITALS: BP 124/64; PULSE 98; RESP 21; TEMP 100.2
--- NOTE | 2017-05-05 14:59 | ERD ---
ER Documentation Chief Complaint Chief Complaint fever , cough , chills x 1 day HPI 41 year old female presents with fever, cough, chills for one day. Patient denies any vomiting diarrhea. States that no medications were given ROS All systems reviewed and are negative except as per history of present illness. Medications Home Meds Active Scripts Loratadine/Pseudoephedrine* (Claritin-D* 12 Hr) 5-120 Mg Tab.er.12h, 1 TAB PO Q12, #20 TAB.SA Prov:RAYMON MENA PA-C 05/05/17 Acetaminophen* (Tylenol*) 325 Mg Tablet, 2 TAB PO Q4 Y for PAIN AND OR ELEVATED TEMP, #30 TAB Prov:RAYMON MENA PA-C 05/05/17 Reported Medications Ferrous Sulfate* (Ferrous Sulfate*) 325 Mg Tabec, 325 MG PO BID, TAB 05/29/16 Allergies Allergies: Coded Allergies: No Known Allergy (Unverified , 01/26/15) PMhx/Soc Medical and Surgical Hx: pt denies Medical Hx, pt denies Surgical Hx Hx Alcohol Use: No Hx Substance Use: No Hx Tobacco Use: No Physical Exam Vitals Vital Signs Date Time Temp Pulse Resp B/P Pulse Ox O2 Delivery O2 Flow Rate FiO2 05/05/17 13:58 100.2 98 21 124/64 99 Room Air 05/05/17 12:36 101.8 89 18 143/84 96 Physical Exam Const: WDWN no acute distress Head: Atraumatic Eyes: Normal Conjunctiva ENT: Normal External Ears, Nose and Mouth. Neck: Full range of motion..~ No meningismus. Resp: Clear to auscultation bilaterally Cardio: Regular rate and rhythm, no murmurs Abd: Soft, non tender, non distended. Normal bowel sounds Skin: No petechiae or rashes Back: No midline or flank tenderness Ext: No cyanosis, or edema Neur: Awake and alert Psych: Normal Mood and Affect Results 24 hrs Current Medications Medications (Trade) Dose Ordered Sig/Reymundo Route PRN Reason Start Time Stop Time Status Last Admin Dose Admin Acetaminophen (Tylenol Tab) 1,000 mg ONCE STAT PO 05/05/17 13:27 05/05/17 13:29 DC 05/05/17 13:36 Ibuprofen (Motrin) 400 mg ONCE ONCE PO 05/05/17 13:30 05/05/17 13:31 DC 05/05/17 13:36 Procedures/MDM 41-year-old female presents to the emergency department with signs and symptoms consistent with a viral upper respiratory infection. There is no evidence of pneumonia, respiratory distress. Patient is well-appearing and stable to discharged home to follow with primary care physician. Prescription for Claritin-D and Tylenol was given Departure Diagnosis: Primary Impression: URI (upper respiratory infection) Condition: Stable Patient Instructions: Uri, Viral, No Abx (Adult) Additional Instructions: Visite a baxter ranjit atkinson para un EXAMEN.Regrese a estas instalaciones si no se mejora claribel esperbamos o claribel le dijimos. Slayden toda la medicina keenan y claribel se le indic. Regrese a estas instalaciones si no se mejora claribel esperbamos o claribel le dijimos. RAYMON MENA PA-C May 05, 2017 14:59
== END 2017-05-05 13:59 | disposition home or self-care (01) ==
LOC: FTE 12:26
DX: J06.9 Acute upper respiratory infection, unspecified (principal)
CPT/HCPCS: Z7502; Z7610; 99283